=== PATIENT | female | born 1965 | race Caucasian/White ===

== ENCOUNTER 2018-02-28 06:09 | Day surgery (SDC) | payer BC ==
[2018-02-27 11:18] VITALS: BMI 35.4
[~2018-02-28 06:09] MED LIST: Cyclopentolate 1% Opth Drop 2 ML BOT FS SCH; Fluorouracil 100 MG, Enoxaparin Sodium 25 MG, EPINEPHrine 0.3 MG, Dextrose 50% 3 ML in ... FS SCH; Phenylephrine 2.5% Ophth Soln 5 ML BOT FS SCH
[2018-02-28] MEDS ORDERED: Cyclopentolate 1% Opth Drop 2 ML BOT ONE (06:25)
[2018-02-28] MEDS ORDERED: Phenylephrine 2.5% Ophth Soln 5 ML BOT ONE (06:25)
[2018-02-28] MEDS ORDERED: Fentanyl 100 MCG/2 ML VIAL ONE (06:49)
[2018-02-28] MEDS ORDERED: Midazolam HCl 2 mg/2 ml Vial ONE (06:49)
[2018-02-28] MEDS ORDERED: PROPOFOL 20 ML ONE (06:50)
[2018-02-28] MEDS ORDERED: Lidocaine 1% (PF) 30 ML VIAL ONE (06:50)
--- NOTE | 2018-02-28 08:56 | OP ---
DATE OF PROCEDURE: 02/28/2018 PREOPERATIVE DIAGNOSIS: Macular hole, left eye. POSTOPERATIVE DIAGNOSIS: Macular hole, left eye. PROCEDURE: Pars plana vitrectomy, internal limiting membrane peel, left eye. SURGEON: Dr. Jonathan Merritt ANESTHESIA: Local with monitored anesthesia care. PROCEDURE IN DETAIL: The patient was identified in the preoperative holding area. Appropriate infor med consent for the planned surgical procedure. The patient was taken to the operative suite where a ppropriate cardiopulmonary monitoring was established. Local anesthesia obtained using retrobulbar a nd modified Van Lint lid block using 50:50 mixture of 4% lidocaine and 0.75% bupivacaine. The patien t was prepped and draped in the usual sterile manner for ophthalmic surgery on the left eye. Lid spe culum was placed in the left eye. The 25-gauge trocars were placed in conjunctiva and sclera suprate mporally, inferotemporally, and supranasally. Infusion line was placed inferotemporally. Light pipe and vitreous cutter were inserted into the eye. Core vitrectomy was performed. ICG was infused int o the eye x1, identifying the internal limiting membrane. This was elevated using membrane scraper a nd peeled across the macula using end-gripping forceps. Complete air fluid exchange was performed wi th 10 minutes being allowed for fluid to drain posteriorly. A 28% sulfur hexafluoride gas was infuse d into the eye. Trocars were removed. Supratemporal sclerotomy was suture closed. Retrobulbar Sariah log and subconjunctival Ancef were placed. Atropine and antibiotic ointment placed, and the eye was patched and shielded. The patient was taken to the postoperative recovery unit in good condition hav ing suffered no immediate perioperative complications. DISCHARGE INSTRUCTIONS: The patient was instructed to avoid flat on back positioning, call for pain not relieved with Tylenol, and follow up in the morning with Dr. Merritt.
[2018-02-28] MEDS ORDERED: Lidocaine 1% PF 5 ML VIAL ONE ×2 (11:03)
[2018-02-28] MEDS ORDERED: Triamcinolone 40 MG/ML VIAL ONE (11:03)
[2018-02-28] MEDS ORDERED: Lidocaine 4% PF 5 ML AMP ONE (11:03)
[2018-02-28] MEDS ORDERED: CEFAZOLIN 1 GM VIAL ONE (11:03)
[2018-02-28] MEDS ORDERED: PROPOFOL 200 MG/20 ML VIAL ONE (11:03)
[2018-02-28] MEDS ORDERED: Bupivacaine 0.75% 10 ML AMP ONE (11:03)
[2018-02-28] MEDS ORDERED: Indocyanine Green 25 MG/10 ML VIAL ONE (11:03)
[2018-02-28] MEDS ORDERED: Maxitrol 0.1% Opth Oint 3.5 GM TUBE ONE (11:03)
== END 2018-02-28 08:55 | disposition home or self-care (01) ==
LOC: SDC 06:09
PROVIDERS: ATTEND Ophthalmology Retina Specialist
DX: H35.342 Macular cyst, hole, or pseudohole, left eye (principal); Z79.899 Other long term (current) drug therapy; Z79.52 Long term (current) use of systemic steroids
CPT/HCPCS: 67025; J0171; J0690; J1650; J2001; J2250; J2704; J3010; J3301; J3490; J9190

== ENCOUNTER 2022-11-03 13:16 | Outpatient (CLI) | payer BC ==
[~2022-11-03 13:16] MED LIST changes: -Cyclopentolate 1% Opth Drop 2 ML BOT FS SCH; -Fluorouracil 100 MG, Enoxaparin Sodium 25 MG, EPINEPHrine 0.3 MG, Dextrose 50% 3 ML in ... FS SCH; +Iopamidol 370 76% 100 ML VIAL ONE; -Phenylephrine 2.5% Ophth Soln 5 ML BOT FS SCH
== END 2022-11-03 13:17 | disposition home or self-care (01) ==
LOC: CT 13:16
PROVIDERS: ATTEND Family Medicine
DX: R22.1 Localized swelling, mass and lump, neck (principal)
CPT/HCPCS: 70491